=== PATIENT | male | born 1995 | race Caucasian/White ===

== ENCOUNTER 2017-10-11 09:15 | Emergency (ER) | payer OTHER, BC ==
[2017-10-11] MEDS ORDERED: Ibuprofen 800 MG Tab PO ONE (09:54)
--- NOTE | 2017-10-11 09:58 | EDM.PDOC ---
ED HPI GENERAL MEDICAL PROBLEM - General Chief Complaint: Upper Extremity Injury/Pain Stated Complaint: LEFT HAND PAIN WORK RELATED Time Seen by Provider: 10/11/17 09:51 - History of Present Illness INITIAL COMMENTS - FREE TEXT/NARRATIVE: HISTORY AND PHYSICAL: History of present illness: The patient is a 22-year-old male with no stated medical problems who presents from work after he sustained a crushing-like injury to the palm of his left hand with a piece of machinery. The patient says he is right-hand dominant and was having a completely normal day when this occurred with no systemic complaints and the machinery grabbed his hand and squeezed it and he has pain in the center of the palm of his left hand. He doesn't have pain to the dorsal aspect of his hand or his fingers and has no wrist or proximal forearm elbow or shoulder pain. He doesn't have numbness or tingling to the hand or the fingers. There were no other injuries with this event. Review of systems: As per history of present illness and below otherwise all systems reviewed and negative. Past medical history: As per history of present illness and as reviewed below otherwise noncontributory. Surgical history: As per history of present illness and as reviewed below otherwise noncontributory. Social history: No reported history of drug or alcohol abuse. Family history: As per history of present illness and as reviewed below otherwise noncontributory. Physical exam: Dermal: Well-developed well-nourished man who is nontoxic and vital signs are noted by me. HEENT: Atraumatic, normocephalic, negative for conjunctival pallor or scleral icterus, mucous membranes moist, throat clear, neck supple, nontender, trachea midline. Lungs: Clear to auscultation, breath sounds equal bilaterally, chest nontender. Heart: S1S2, regular in rhythm no overt murmurs Abdomen: Soft, nondistended, nontender. NABS Pelvis: Deferred Genitourinary: Deferred. Rectal: Deferred. Extremities: Atraumatic appearing without any visible soft tissue swelling but there is tenderness at the center of the palm of the left hand and abdomen very superficial pink erick is seen at the skin without skin break. There is no ecchymosis erythema warmth or bony deformities at the hand. Distally the fingers are intact and nontender and proximally at the wrist forearm elbow humerus and shoulder there are no defects or deformities or tenderness. The patient is able to flex and extend at the fingers but says that there is some discomfort at the palm of his left hand when he does that. The legs are, negative for cords or calf pain. Neurovascular unremarkable. Neuro: Awake, alert, oriented. Cranial nerves II through XII unremarkable. Cerebellum unremarkable. Motor and sensory unremarkable throughout. Exam nonfocal. Diagnostics: X-ray left hand Therapeutics: vu Baumann Impression: Left hand contusion Definitive disposition and diagnosis as appropriate pending reevaluation and review of above. Left Hand Pain Score (Numeric/FACES): 6 - Related Data Allergies Allergy/AdvReac Type Severity Reaction Status Date / Time banana Allergy Bronchospas Verified 10/11/17 09:35 ms pollen extracts Allergy Sneezing Verified 10/11/17 09:36 Home Meds: Home Meds . [No Known Home Meds] 10/11/17 [History] Past Medical History - Infectious Disease History Infectious Disease History: Reports: Chicken Pox - Past Surgical History HEENT Surgical History: Reports: Adenoidectomy, Tonsillectomy Musculoskeletal Surgical History: Reports: Arthroscopic Knee Other Musculoskeletal Surgeries/Procedures:: Right knee surgery Social & Family History - Family History Family Medical History: Noncontributory - Tobacco Use Smoking Status *Q: Current Every Day Smoker Years of Tobacco use: 11 Packs/Tins Daily: 0.3 - Caffeine Use Caffeine Use: Reports: Energy Drinks - Recreational Drug Use Recreational Drug Use: No Review of Systems - Review of Systems Review Of Systems: ROS reveals no pertinent complaints other than HPI. ED EXAM, GENERAL - Physical Exam Exam: See Below (see dictation) Course - Vital Signs Last Recorded V/S: Last Vital Signs Temp 36.4 C 10/11/17 09:29 Pulse 63 10/11/17 09:29 Resp 16 10/11/17 09:29 BP 158/96 H 10/11/17 09:29 Pulse Ox 97 10/11/17 09:29 - Orders/Labs/Meds Meds: Medications Discontinued Medications Generic Name Dose Route Start Last Admin Trade Name Freq PRN Reason Stop Dose Admin Ibuprofen 800 mg 10/11/17 09:54 Motrin PO 10/11/17 09:55 ONETIME ONE Departure - Departure Time of Disposition: 10:26 Disposition: Home, Self-Care 01 Condition: Good Clinical Impression: Contusion of hand, left Qualifiers: Encounter type: initial encounter Qualified Code(s): S60.222A - Contusion of left hand, initial encounter - Discharge Information Referrals: PCP,None [Primary Care Provider] - Forms: ED Department Discharge Additional Instructions: The following information is given to patients seen in the emergency department who are being discharged to home. This information is to outline your options for follow-up care. We provide all patients seen in our emergency department with a follow-up referral. The need for follow-up, as well as the timing and circumstances, are variable depending upon the specifics of your emergency department visit. If you don't have a primary care physician on staff, we will provide you with a referral. We always advise you to contact your personal physician following an emergency department visit to inform them of the circumstance of the visit and for follow-up with them and/or the need for any referrals to a consulting specialist. The emergency department will also refer you to a specialist when appropriate. This referral assures that you have the opportunity for followup care with a specialist. All of these measure are taken in an effort to provide you with optimal care, which includes your followup. Under all circumstances we always encourage you to contact your private physician who remains a resource for coordinating your care. When calling for followup care, please make the office aware that this follow-up is from your recent emergency room visit. If for any reason you are refused follow-up, please contact the [facility] emergency department at and ask to speak to the emergency department charge nurse. [facility] and Hand [facility] [address] [place] [id number] [facility] Primary care- Internal Medicine and [facility] [address] [place] [id number] Ice and elevate the area using the sling you have been given an wiggle and move the fingers and wrist every hour to prevent swelling. Please use over-the- counter medications such as Tylenol and ibuprofen for pain and please call and schedule follow-up with occupational health per your employer's instructions and with one of our physicians as using the resources as above. Return to ER as needed and as discussed.
--- NOTE | 2017-10-11 10:17 | CR ---
EXAMINATION: Left hand HISTORY: Trauma COMPARISON: None TECHNIQUE: 3 views FINDINGS/IMPRESSION: There is no acute osseous abnormality, dislocation, or fracture. Bone mineraliza tion and joint spaces are preserved. No fracture or acute osseous abnormality.
== END 2017-10-11 11:38 | disposition home or self-care (01) ==
LOC: MW.ED 09:15
DX: S60.222A Contusion of left hand, initial encounter (principal); Y99.0 Civilian activity done for income or pay; F17.210 Nicotine dependence, cigarettes, uncomplicated
CPT/HCPCS: 73130; 99283; A9270